=== PATIENT | female | born 1970 | race Caucasian/White ===

== ENCOUNTER 2020-05-07 19:49 | Emergency (ER) | payer SELFPAY ==
--- NOTE | 2020-05-07 20:56 | ER Document Report ---
ED Medical Screen (RME) - General Chief Complaint: Vaginal Bleeding Stated Complaint: VAGINAL BLEEDING, WEAKNESS Time Seen by Provider: 05/07/20 20:45 - HPI Notes: 05/07/20 20:53 49-year-old [place] to the emergency room for vaginal bleeding postcoital approximately an hour and a half ago. Patient states that she had a hysterectomy 20 years ago, has not been sexually active in 12 years. States that her in a long time friend or sexually active, did not use any toys and did not have aggressive side effects. States that directly postcoital there was copious amount of bleeding on the pad. She does not have any tampons or sanitary napkins on her, states she is been using tissue paper. Denies any clotting disorders. Denies any fevers or chills, denies any abdominal pain. Denies any chest pain shortness of breath, nausea vomiting or diarrhea I have greeted and performed a rapid initial assessment of this patient. A comprehensive ED assessment and evaluation of the patient, analysis of test results and completion of the medical decision making process will be conducted by additional ED providers. PHYSICAL EXAMINATION: GENERAL: Well-appearing, well-nourished and in no acute distress. CV: s1, s2 regular LUNGS: No respiratory distress M Physical Exam - Vital signs Vitals: Temp Pulse Resp BP Pulse Ox 98.4 F 65 16 148/88 H 98 05/07/20 19:58 05/07/20 19:58 05/07/20 19:58 05/07/20 19:58 05/07/20 19:58 Course - Vital Signs Vital signs: Temp Pulse Resp BP Pulse Ox 98.4 F 65 16 148/88 H 98 05/07/20 19:58 05/07/20 19:58 05/07/20 19:58 05/07/20 19:58 05/07/20 19:58
[2020-05-07 21:53] LABS: ABSOLUTE BASOPHILS # (AUTO) 0.1 10^3/uL (0.0-0.2); ABSOLUTE EOSINOPHILS # (AUTO) 0.2 10^3/uL (0.0-0.6); ABSOLUTE LYMPHOCYTES (AUTO) 1.4 10^3/uL (0.5-4.7); ABSOLUTE MONOCYTES (AUTO) 0.6 10^3/uL (0.1-1.4); ABSOLUTE NEUT (AUTO) 7.1 10^3/uL (1.7-8.2); BASOPHILS % (AUTO) 0.6 % (0-2); EOSINOPHILS % (AUTO) 2.1 % (0-6); HEMATOCRIT 39.4 % (36.0-47.0); HEMOGLOBIN 13.2 g/dL (12.0-15.5); LYMPHOCYTES % (AUTO) 15.1 % (13-45); MEAN CORPUSCULAR HEMOGLOBIN 29.1 pg (27.0-33.4); MEAN CORPUSCULAR HGB CONC 33.5 g/dL (32.0-36.0); MEAN CORPUSCULAR VOLUME 87 fl (80-97); MONOCYTES % (AUTO) 6.4 % (3-13); PLATELET COUNT 246 10^3/uL (150-450); RED BLOOD COUNT 4.54 10^6/uL (3.72-5.28); RED CELL DISTRIBUTION WIDTH 13.9 % (11.5-14.0); SEGMENTED NEUTROPHILS % (AUTO) 75.8 % (42-78); TOTAL CELLS COUNTED % (AUTO) 100 %; WHITE BLOOD COUNT 9.4 10^3/uL (4.0-10.5)
[2020-05-07 21:59] LABS: APPEARANCE,URINE CLEAR; BILIRUBIN,URINE NEGATIVE (NEGATIVE); COLOR,URINE STRAW; GLUCOSE, URINE NEGATIVE (NEGATIVE); KETONES,URINE NEGATIVE (NEGATIVE); LEUKOCYTE ESTERASE,URINE NEGATIVE (NEGATIVE); NITRITE,URINE NEGATIVE (NEGATIVE); PROTEIN,URINE NEGATIVE (NEGATIVE); URINE SPECIFIC GRAVITY 1.011; UROBILINOGEN,URINE NEGATIVE mg/dL (<2.0)
[2020-05-07 22:07] LABS: ALKALINE PHOSPHATASE 171 U/L (38-126); ANION GAP 5 (5-19); ASPARTATE AMINO TRANSFERASE 20 U/L (14-36); BILIRUBIN,TOTAL 0.4 mg/dL (0.2-1.3); BLOOD UREA NITROGEN 13 mg/dL (7-20); CALCIUM 10.5 mg/dL (8.4-10.2); CARBON DIOXIDE 27 mmol/L (22-30); CHLORIDE 106 mmol/L (98-107); GLUCOSE 90 mg/dL (75-110); POTASSIUM 3.8 mmol/L (3.6-5.0); TOTAL PROTEIN 7.1 g/dL (6.3-8.2)
--- NOTE | 2020-05-07 22:11 | RADIOLOGY REPORT (SQ) ---
EXAM DESCRIPTION: US PELVIS TRANSVAGINAL COMPLETED DATE/TME: 05/07/2020 20:52 CLINICAL HISTORY: 49 years, Female, vaginal bleeding postcoital COMPARISON: None. TECHNIQUE: Emergent pelvic ultrasound LIMITATIONS: None. FINDINGS: The patient is status post hysterectomy and bilateral oophorectomy. No abnormal masses or fluid collections in the pelvis. IMPRESSION: Post surgical change as above. Remainder unremarkable copyright 2010 [employer]- All Rights Reserved
[2020-05-08] MEDS ORDERED: LIDOCAINE 1% INJ-PF (10 MG/ML) 30 ML SDV INJ ONE (01:58)
--- NOTE | 2020-05-08 02:24 | ER Document Report ---
ED GI/ - General Chief Complaint: Vaginal Bleeding Stated Complaint: VAGINAL BLEEDING, WEAKNESS Time Seen by Provider: 05/07/20 20:45 Primary Care Provider: RUEPSH MARCUS MD [ACTIVE STAFF] - 05/10/20 Mode of Arrival: Ambulatory Information source: Patient Notes: 49-year-old female presented to ED for complaint of vaginal bleeding after having sexual intercourse. She states she had had the sexual intercourse just before coming to the emergency room. She states she was having large blood clots 2. She had a hysterectomy previously and so she was very concerned about this bleeding. She states she has not had any sexual intercourse in 12 years before this episode. He states she did not used any tampons or sanitary napkins she was just using tissue paper. She states it was bleeding heavily but now it was just spotting. 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 LMP: Post hysterectomy Associated symptoms: Other - Vaginal bleeding Exacerbated by: Denies Relieved by: Denies Similar symptoms previously: No Recently seen / treated by doctor: No - Related Data Allergies/Adverse Reactions: erythromycin base Allergy (Verified 05/07/20 20:55) hydromorphone [From Dilaudid] Allergy (Verified 05/07/20 20:55) pregabalin [From Lyrica] Allergy (Verified 05/07/20 20:55) sulfamethoxazole [From Bactrim] Allergy (Verified 05/07/20 20:55) trimethoprim [From Bactrim] Allergy (Verified 05/07/20 20:55) Past Medical History - General Information source: Patient - Social History Smoking Status: Never Smoker Frequency of alcohol use: None Drug Abuse: None Lives with: Alone Family History: Reviewed & Not Pertinent - Past Medical History Cardiac Medical History: Reports: None Pulmonary Medical History: Reports: None EENT Medical History: Reports: None Neurological Medical History: Reports: None Endocrine Medical History: Reports: None Renal/ Medical History: Reports: None Malignancy Medical History: Reports: None GI Medical History: Reports: None Musculoskeletal Medical History: Reports None Skin Medical History: Reports None Psychiatric Medical History: Reports: None Traumatic Medical History: Reports: None Infectious Medical History: Reports: None Past Surgical History: Reports: Hx Hysterectomy - Immunizations Immunizations up to date: Yes Review of Systems - Review of Systems Constitutional: No symptoms reported EENT: No symptoms reported Cardiovascular: No symptoms reported Respiratory: No symptoms reported Gastrointestinal: No symptoms reported Genitourinary: No symptoms reported Female Genitourinary: Vaginal bleeding Musculoskeletal: No symptoms reported Skin: No symptoms reported Hematologic/Lymphatic: No symptoms reported Neurological/Psychological: No symptoms reported Physical Exam - Vital signs Vitals: Temp Pulse Resp BP Pulse Ox 98.4 F 65 16 148/88 H 98 05/07/20 19:58 05/07/20 19:58 05/07/20 19:58 05/07/20 19:58 05/07/20 19:58 Interpretation: Normal - General General appearance: Appears well, Alert - HEENT Head: Normocephalic, Atraumatic Eyes: Normal Pupils: PERRL - Respiratory Respiratory status: No respiratory distress Chest status: Nontender Breath sounds: Normal Chest palpation: Normal - Cardiovascular Rhythm: Regular Heart sounds: Normal auscultation Murmur: No - Abdominal Inspection: Normal Distension: No distension Bowel sounds: Normal Tenderness: Nontender Organomegaly: No organomegaly - Genitourinary External exam: Normal Speculum exam: Other - Approximately 1 to 2 cm laceration on the inner vaginal wall with speculum I did have Dr. Lane come and examine the patient. Vaginal bleeding: Mild - Back Back: Normal, Nontender - Extremities General upper extremity: Normal inspection, Nontender, Normal color, Normal ROM, Normal temperature General lower extremity: Normal inspection, Nontender, Normal color, Normal ROM, Normal temperature, Normal weight bearing. No: Heather's sign - Neurological Neuro grossly intact: Yes Cognition: Normal Orientation: AAOx4 Sharda Coma Scale Eye Opening: Spontaneous Sharda Coma Scale Verbal: Oriented [place] Coma Scale Motor: Obeys Commands [place] Coma Scale Total: 15 Speech: Normal Motor strength normal: LUE, RUE, LLE, RLE Sensory: Normal - Psychological Associated symptoms: Normal affect, Normal mood - Skin Skin Temperature: Warm Skin Moisture: Dry Skin Color: Normal Course - Re-evaluation Re-evalutation: 05/08/20 07:27 Labs ultrasound and exam discussed with Dr. Marcus. She stated that unless the patient was having severe hemorrhaging it was better to let the laceration heal on its own. She stated that the patient should return to the ED or to the women's health care she had any increase in bleeding or any other symptoms. Patient did verbalize understanding and agreement with this treatment plan patient was discharged home. - Vital Signs Vital signs: Temp Pulse Resp BP Pulse Ox 98.2 F 75 18 137/76 H 100 05/08/20 02:33 05/08/20 02:33 05/08/20 02:33 05/08/20 02:33 05/08/20 02:33 - Laboratory Result Diagrams: 05/07/20 21:15 05/07/20 21:15 Laboratory results interpreted by me: 05/07/20 05/07/20 21:15 21:15 Est GFR (MDRD) Non-Af 59 L Calcium 10.5 H Alkaline Phosphatase 171 H Urine Blood LARGE H - Diagnostic Test Radiology reviewed: Image reviewed, Reports reviewed Discharge - Discharge Clinical Impression: Vaginal injury during intercourse Condition: Stable Disposition: HOME, SELF-CARE Additional Instructions: You were seen today for a vaginal injury during intercourse. Please no sexual intercourse or tampons until this is healed. Please no douches Acetaminophen Acetaminophen may be taken for pain relief or fever control. It's much safer than aspirin, offering a wider range of "safe" dosages. It is safe during . Some brand names are Tylenol, Panadol, Datril, Anacin 3, Tempra, and Liquiprin. Acetaminophen can be repeated every four hours. The following are maximum recommended dosages: WEIGHT Dose Drops Elixir Chewable(80mg) (LBS.) drprs=droppers tsp=teaspoon 6 40 mg .4 ml (1/2) 6-11 80 mg .8 ml (full) 1/2 tsp 1 tab 12-16 120 mg 1 1/2 drprs 3/4 tsp 1 1/2 tabs 17-23 160 mg 2 drprs 1 tsp 2 tabs 24-30 240 mg 3 drprs 1 1/2 tsp 3 tabs 30-35 320 mg 2 tsp 4 tabs 36-41 360 mg 2 1/4 tsp 4 1/2 tabs 42-47 400 mg 2 1/2 tsp 5 tabs 48-53 480 mg 3 tsp 6 tabs 54-59 520 mg 3 1/4 tsp 6 1/2 tabs 60-64 560 mg 3 1/2 tsp 7 tabs 65-70 600 mg 3 3/4 tsp 7 1/2 tabs 71-76 640 mg 4 tsp 8 tabs 77-82 720 mg 4 1/2 tsp 9 tabs 83-88 800 mg 5 tsp 10 tabs >89 pounds or adults 650 mg to 900 mg Acetaminophen can be repeated every four hours. Maximum daily dose not to exceed 4000 mg. These maximum recommended dosages are slightly higher than the dosages written on the product container, but these dosages are very safe and well below the toxic dosage for acetaminophen. Ibuprofen Ibuprofen is an excellent, safe drug for pain control. In addition, it has potent antiinflammatory effects which are beneficial, especially in the treatment of injuries, arthritis, or tendonitis. It's best to take ibuprofen with food. Persons with ulcer disease or allergy to aspirin should notify their physician of this before taking ibuprofen. Take the medication exactly as prescribed. Don't take additional doses unless instructed to do so by your doctor. If you develop wheezing, shortness of breath, hives, faintness, stomach pain, vomiting, or dark black stools, return for re-evaluation at once. These return to the emergency room immediately for any increasing bleeding any fever any increase in pelvic pain or any other changes that are concerning due to this injury. Otherwise please follow-up with [facility] Dr. Marcus's who I spoke with on Sunday FOLLOW-UP CARE: If you have been referred to a physician for follow-up care, call the physicians office for an appointment as you were instructed or within the next two days. If you experience worsening or a significant change in your symptoms, notify the physician immediately or return to the Emergency Department at any time for re-evaluation. Forms: Elevated Blood Pressure Referrals: RUPESH MARCUS MD [ACTIVE STAFF] - 05/10/20
[2020-05-08 03:03] VITALS: BP 137/76
== END 2020-05-08 02:33 | disposition home or self-care (01) ==
LOC: ER 19:49
DX: S39.848A Other specified injuries of external genitals, initial encounter (principal); N93.9 Abnormal uterine and vaginal bleeding, unspecified; R53.1 Weakness; X58.XXXA Exposure to other specified factors, initial encounter; Z90.710 Acquired absence of both cervix and uterus; Z88.1 Allergy status to other antibiotic agents; Z88.2 Allergy status to sulfonamides; Z88.8 Allergy status to other drugs, medicaments and biological substances
CPT/HCPCS: 36415; 76830; 80053; 81001; 81025; 85025; 99284